=== PATIENT | female | born 2000 | race Caucasian/White ===

== ENCOUNTER 2020-11-16 10:46 | Emergency (ER) | payer SELFPAY ==
--- NOTE | 2020-11-16 11:27 | PCM.SN.2 ---
- Free Text/Narrative Note: 12-Lead ECG Interpretation Acquired: 10:51 AM Rhythm: Sinus rhythm Rate: 67 bpm [place]: Normal Intervals: Normal Ectopy: None RV Strain: No obvious RV strain pattern. ST Segments/T-Waves: Isolated T wave inversions in aVL Acute Ischemic Changes: None apparent Interpretation: No STEMI, no prior ECG for comparison.
--- NOTE | 2020-11-16 11:36 | EDM.PDOC ---
ED HPI GENERAL MEDICAL PROBLEM - General Chief Complaint: General Stated Complaint: SHORT OF BREATH Time Seen by Provider: 11/16/20 10:52 Source of Information: Reports: Patient History Limitations: Reports: Language Barrier (interveiw accomplished with assistance of trained medical anthropologist (Macedonian)) - History of Present Illness INITIAL COMMENTS - FREE TEXT/NARRATIVE: Presents reporting a 12 hour history of left upper chest pain and tenderness that radiates directly through to the back and in the left shoulder and arm. Accompanied by SOB with exertion. Denies injury, nausea, vomiting, sweating, lightheadedness. States the pain was first noticed last evening while she was at work. She denies any precipitating activity, exercise or positions. The pain increases with moving her left shoulder and when taking a deep breath. Mild when resting and lying down. No headache, body aches, fever, diarrhea, sore throat or other COVID symptoms except fatigue. Otherwise healthy without chronic medical problems and takes no medications. The patient denies , states she is not sexually active and not use control. She does not smoke or use recreational drugs. Left Chest Pain Score (Numeric/FACES): 5 - Related Data Allergies Allergy/AdvReac Type Severity Reaction Status Date / Time No Known Allergies Allergy Verified 11/16/20 10:50 Home Meds: Home Meds . [No Known Home Meds] 11/16/20 [History] Past Medical History - Infectious Disease History Infectious Disease History: Reports: None Social & Family History - Tobacco Use Tobacco Use Status *Q: Never Tobacco User - Caffeine Use Caffeine Use: Reports: Coffee, Energy Drinks, Soda, Tea - Recreational Drug Use Recreational Drug Use: No ED ROS GENERAL - Review of Systems Review Of Systems: Comprehensive ROS is negative, except as noted in HPI. ED EXAM, GENERAL - Physical Exam Exam: See Below Exam Limited By: No Limitations General Appearance: Alert, No Apparent Distress Ears: Normal External Exam, Normal TMs Nose: Normal Inspection Throat/Mouth: Normal Inspection, Normal Oropharynx Head: Atraumatic, Normocephalic Neck: Normal Inspection. No: Lymphadenopathy (L), Lymphadenopathy (R) Respiratory/Chest: No Respiratory Distress, Lungs Clear, Normal Breath Sounds, Other (tenderness at the MCL left 2nd ICS) Cardiovascular: Normal Peripheral Pulses, Regular Rate, Rhythm, No Edema GI/Abdominal: Soft, Non-Tender, No Distention Back Exam: Normal Inspection. No: CVA Tenderness (L), CVA Tenderness (R) Extremities: Normal Inspection, Limited Range of Motion (By pain at the top of the range to shoulder flexion), Other (No pain throughout the range on the right. No left shoulder, chest or back erythema, swelling, lesion.) Neurological: Alert, Oriented, Normal Cognition Psychiatric: Normal Affect, Normal Mood #1 Interpretation Rhythm: NSR Rate (Beats/Min): 67 [place]: Normal P-Wave: Present QRS: Normal ST-T: Normal QT: Normal Course - Vital Signs Last Recorded V/S: Last Vital Signs Temp 35.8 C L 11/16/20 10:51 Pulse 78 11/16/20 10:51 Resp 18 11/16/20 10:51 BP 118/81 11/16/20 10:51 Pulse Ox 100 11/16/20 10:51 - Orders/Labs/Meds Orders: Active Orders 24 hr Category Date Time Status EKG 12 Lead [EKG Documentation Completion] [RC] STAT Care 11/16/20 11:23 Ordered Chest 2V [CR] Stat Exams 11/16/20 11:23 Ordered C-REACTIVE PROTEIN [CHEM] Stat Lab 11/16/20 11:22 Ordered CBC WITH AUTO DIFF [HEME] Stat Lab 11/16/20 11:22 Ordered COMPREHENSIVE METABOLIC PN,CMP [CHEM] Stat Lab 11/16/20 11:23 Ordered TROPONIN I [CHEM] Stat Lab 11/16/20 11:22 Ordered Departure - Departure Time of Disposition: 12:31 Disposition: Home, Self-Care 01 Condition: Good Clinical Impression: Myalgia - Discharge Information Referrals: PCP,None [Primary Care Provider] - [facility] [Outside] [facility] [Outside] Additional Instructions: The following information is given to patients seen in the emergency department who are being discharged to home. This information is to outline your options for follow-up care. We provide all patients seen in our emergency department with a follow-up referral. The need for follow-up, as well as the timing and circumstances, are variable depending upon the specifics of your emergency department visit. If you don't have a primary care physician on staff, we will provide you with a referral. We always advise you to contact your personal physician following an emergency department visit to inform them of the circumstance of the visit and for follow-up with them and/or the need for any referrals to a consulting specialist. The emergency department will also refer you to a specialist when appropriate. This referral assures that you have the opportunity for follow-up care with a specialist. All of these measure are taken in an effort to provide you with optimal care, which includes your follow-up. Under all circumstances we always encourage you to contact your private physician who remains a resource for coordinating your care. When calling for follow-up care, please make the office aware that this follow-up is from your recent emergency room visit. If for any reason you are refused follow-up, please contact the [facility] Emergency Department at and asked to speak to the emergency department charge nurse. 1. It is unknown exactly what caused your pain. It is much worse when you flex your shoulder. 2. If your pain worsens or if you become feverish, return to the ER promptly. 3. If your pain continues, follow up in primary care to further evaluate your shoulder. 4. Take Aleve 2 tabs am and pm or Ibuprofen 2-3 tabs three times daily as needed for pain. 5. Warm pack to left shoulder 20 minutes every 3-4 hours as needed for pain. Sepsis Event Note (ED) - Evaluation Sepsis Screening Result: No Definite Risk - Focused Exam Vital Signs: Vital Signs Temp Pulse Resp BP Pulse Ox 11/16/20 10:51 35.8 C L 78 18 118/81 100 - My Orders Last 24 Hours: My Active Orders 11/16/20 11:22 C-REACTIVE PROTEIN [CHEM] Stat CBC WITH AUTO DIFF [HEME] Stat TROPONIN I [CHEM] Stat 11/16/20 11:23 EKG 12 Lead [EKG Documentation Completion] [RC] STAT Chest 2V [CR] Stat COMPREHENSIVE METABOLIC PN,CMP [CHEM] Stat - Assessment/Plan Last 24 Hours: My Active Orders 11/16/20 11:22 C-REACTIVE PROTEIN [CHEM] Stat CBC WITH AUTO DIFF [HEME] Stat TROPONIN I [CHEM] Stat 11/16/20 11:23 EKG 12 Lead [EKG Documentation Completion] [RC] STAT Chest 2V [CR] Stat COMPREHENSIVE METABOLIC PN,CMP [CHEM] Stat
[2020-11-16 11:41] LABS: BLOOD UREA NITROGEN,BUN 15 mg/dL (7.0-18.0); CARBON DIOXIDE,CO2 26.1 mmol/L (21.0-32.0); CHLORIDE,CL 101 mmol/L (98-107); GLUCOSE RANDOM 86 mg/dL (74-106); POTASSIUM,K 3.4 mmol/L (3.5-5.1); SODIUM,NA 137 mmol/L (136-145)
[2020-11-16] MEDS ORDERED: Ketorolac 30 MG/ML SDV IVPUSH ONE (11:51)
--- NOTE | 2020-11-16 12:25 | CR ---
INDICATION: Chest pain and tenderness without injury COMPARISON: None TECHNIQUE: PA and lateral views of the chest were acquired FINDINGS: TUBES AND LINES: None. HEART AND MEDIASTINUM: The heart size is normal. The mediastinal contour appears normal for patient age. LUNGS AND PLEURAL SPACES: The lungs appear normal.The pleural spaces are unremarkable. OSSEOUS STRUCTURES: Age-appropriate appearance. No acute focal finding. IMPRESSION: No evidence of active pulmonary disease. Dictated by Keny Caldwell MD @ Nov 16 2020 12:22PM Signed by Dr. Keny Caldwell @ Nov 16 2020 12:23PM
== END 2020-11-16 12:53 | disposition home or self-care (01) ==
LOC: MW.ED 10:46
DX: M79.10 Myalgia, unspecified site (principal); M25.512 Pain in left shoulder; R06.02 Shortness of breath
CPT/HCPCS: 36415; 71046; 80053; 84484; 85025; 86140; 96374; 99285; J1885; 93010; 99284

== ENCOUNTER 2022-01-03 21:11 | Emergency (ER) | payer BC ==
[2022-01-03] MEDS ORDERED: Ketorolac 30 MG/ML SDV IM ONE (21:53)
[2022-01-03 22:49] LABS: CORONAVIRUS COVID-19 NAA NEGATIVE (NEGATIVE); INFLUENZA A NAA NEGATIVE (NEGATIVE); INFLUENZA B NAA NEGATIVE (NEGATIVE)
[2022-01-03] MEDS ORDERED: Dexamethasone 4 MG Tab PO STA (22:54)
== END 2022-01-03 23:22 | disposition home or self-care (01) ==
LOC: MW.ED 21:11
DX: J02.8 Acute pharyngitis due to other specified organisms (principal); Z20.822 Contact with and (suspected) exposure to COVID-19
CPT/HCPCS: 0240U; 70360; 70360-26; 87651-QW; 96372; 99282; 99283; J1885; J8540

== ENCOUNTER 2022-08-30 17:26 | Emergency (ER) | payer OTHER ==
[2022-08-30] MEDS ORDERED: Ketorolac 60 MG/2 ML SDV IM ONE (21:02)
[2022-08-30] MEDS ORDERED: Ketorolac 60 MG/2 ML SDV ONE (21:28)
== END 2022-08-30 23:20 | disposition home or self-care (01) ==
LOC: MW.ED 17:26
DX: T65.891A Toxic effect of other specified substances, accidental (unintentional), initial encounter (principal); T26.92XA Corrosion of left eye and adnexa, part unspecified, initial encounter; T26.91XA Corrosion of right eye and adnexa, part unspecified, initial encounter; S20.212A Contusion of left front wall of thorax, initial encounter; W16.312A Fall into other water striking water surface causing other injury, initial encounter
CPT/HCPCS: 96372; 99283; J1885

== ENCOUNTER 2024-07-24 22:29 | Emergency (ER) | payer BC ==
[2024-07-24] MEDS: Sodium Chloride 0.9% 1,000 ML IV ONE (23:10)
[2024-07-24 23:20] LABS: BASOPHILS ABSOLUTE AUTO 0.05 K/uL (0.00-0.20); BASOPHILS PERCENT AUTO 0.4 % (0.0-1.0); EOSINOPHILS ABSOLUTE AUTO 0.21 K/uL (0.00-0.45); EOSINOPHILS PERCENT AUTO 1.5 % (0.0-6.0); HEMATOCRIT 41.2 % (37.0-47.0); HEMOGLOBIN 13.8 g/dL (12.0-16.0); IMMATURE GRAN ABSOLUTE AUTO 0.04 K/uL (0.00-0.05); IMMATURE GRAN PERCENT AUTO 0.3 % (0.0-0.4); LYMPHOCYTES ABSOLUTE AUTO 3.12 K/uL (1.00-4.80); LYMPHOCYTES PERCENT AUTO 22.6 % (24.0-44.0); MEAN CORPUSCULAR HEMOGLOBIN 28.5 pg (28.0-32.0); MEAN CORPUSCULAR HGB CONC 33.5 g/dL (32.0-36.0); MEAN CORPUSCULAR VOLUME 84.9 fL (83.0-99.0); MEAN PLATELET VOLUME 8.6 fL (9.4-12.3); MONOCYTES ABSOLUTE AUTO 0.79 K/uL (0.00-0.80); MONOCYTES PERCENT AUTO 5.7 % (0.0-8.0); NEUTROPHILS ABSOLUTE AUTO 9.62 K/uL (1.80-7.70); NEUTROPHILS PERCENT AUTO 69.5 % (41.0-71.0); PLATELET COUNT,PLT 322 K/uL (150-400); RED BLOOD CELL COUNT 4.85 M/uL (4.10-5.30); WHITE BLOOD CELL COUNT,WBC 13.83 K/uL (3.9-11.3)
[2024-07-24] MEDS: Ketorolac 30 MG/ML SDV IVPUSH ONE (23:20)
[2024-07-24] MEDS: Sodium Chloride 0.9% 10 ML Syringe FLUSH PRN (23:20)
[2024-07-24] MEDS: Sodium Chloride 0.9% 2.5 ML Syringe FLUSH PRN (23:21)
[2024-07-24 23:25] LABS: APPEARANCE,URINE CLEAR; BILIRUBIN,URINE NEGATIVE (NEGATIVE); COLOR,URINE YELLOW; GLUCOSE,URINE NEGATIVE (NEGATIVE); KETONES,URINE NEGATIVE (NEGATIVE); LEUKOCYTE ESTERASE,URINE SMALL (NEGATIVE); NITRITE,URINE NEGATIVE (NEGATIVE); OCCULT BLOOD,URINE MODERATE (NEGATIVE); PROTEIN,URINE NEGATIVE (NEGATIVE); UROBILINOGEN,URINE 0.2 EU/dL (<2.0)
[2024-07-24 23:36] LABS: BACTERIA,URINE FEW (NEGATIVE); MUCUS,URINE LIGHT (NONE-MOD); SQUAMOUS EPITHELIAL CELLS,UR FEW
[2024-07-24 23:48] LABS: ALBUMIN 3.8 g/dL (3.4-5.0); BILIRUBIN TOTAL 0.4 mg/dL (0.2-1.0); CREATININE 1.2 mg/dL (0.6-1.0); EST CRCL DRUG DOSING (CG) 51.48 mL/min; POTASSIUM,K 3.8 mmol/L (3.5-5.1); PROTEIN TOTAL,TP 7.7 g/dL (6.4-8.2)
[2024-07-25] MEDS: Iopamidol 755 MG/ML 500 ML Multipack Bottle IVPUSH ONE (00:46)
[2024-07-25] MEDS: Cephalexin 500 MG Cap PO ONE (01:29)
== END 2024-07-25 01:47 | disposition home or self-care (01) ==
LOC: MW.ED 22:29
DX: N39.0 Urinary tract infection, site not specified (principal); Z75.8 Other problems related to medical facilities and other health care
CPT/HCPCS: 36415; 74177; 80053; 81001; 81025; 83605; 83690; 85025; 96361; 96374; 99284; A9270; J1885; J3490; J7030; Q9967